=== PATIENT | female | born 1985 | race Caucasian/White ===

== ENCOUNTER 2017-07-11 18:01 | Emergency (ER) | payer OTHER ==
[~2017-07-11] VITALS: Ht 172.7 cm; Wt 111.4 kg
[2017-07-11 18:29] VITALS: TEMP 37; Ht 172.7 cm; Wt 111.4 kg
--- NOTE | 2017-07-11 19:31 | EMERGENCY ROOM VISIT NOTE ---
History First contact with patient: 19:27 Chief Complaint: ABDOMINAL PAIN Stated Complaint: STOMACH CRAMPING, FEVER, SWEATS Nursing Triage Summary: patient reports nausea and "twisting" abd pain states she is having chills and pain all over her body. Patient also reports she thought she may be but took a test and it was negative. Patient also vomiting denies any diarrhea or urinary symptoms. History of Present Illness The patient is a 32 year old female who presents to the Emergency Room with complaints of abdominal "uneasiness" and nausea x 1 week. Patient states that approx a week prior she started to suffer from intermittent abdominal cramping associated with nausea and vomiting. She does not have any constant abdominal pain and does not quantify the cramping as actually pain. She states that she was very ill due to a throat infection a few years ago and "just wanted to make sure this was not an infection." She had taken two tests at home which were negative. She denies any dysuria, hematuria, change in bowel habits. She has a history of appendectomy. She refuses saline lock placement. Review of Systems A 10 point review of systems was completed and negative aside from above Past Medical/Surgical History Surgical Problems: (1) History of appendectomy Family History Cancer Diabetes mellitus Heart disease Hypertension Kidney disease Kidney stones Lung disease Social History Smoking Status: Current Every Day Smoker Smokeless Tobacco Use: No Alcohol Use: occasionally Drug Use: none Occupation Status: employed Current/Historical Medications No Active Prescriptions or Reported Meds Allergies Coded Allergies: No Known Allergies (Unverified , 07/11/17) Physical Exam Vital Signs Date Time Temp Pulse Resp B/P (MAP) Pulse Ox O2 Delivery O2 Flow Rate FiO2 07/11/17 20:06 72 20 134/98 99 Room Air 07/11/17 18:29 37.0 93 20 148/94 99 Room Air Physical Exam General: ambulatory, not in acute distress Skin: no rashes noted, no suspicious lesions, no areas of inflammations/ lacerations/ erythema noted CVS: S1/ S2 noted, RRR, no rubs/ murmurs noted, no cyanosis RVS: Clear throughout bilaterally, not in acute respiratory distress, no wheezing/ rales/ crackles noted ENT: no erythema/ injection/ ulcerations noted in the pharynx, no lymphadenopathy Neck: inspection WNL, full ROM of neck ABD: BSx4, mild pain/ tenderness on palpation diffusely, no organomegaly, negative miguel's, psoas, Rovsing, CVA tenderness MSK: inspection of all limbs WNL, motor and sensation intact in all limbs, no swelling/ pain on palpation of joints NVS: alert and oriented x 3 Lymph: No lymphadenopathy palpable Medical Decision & Procedures Laboratory Results 07/11/17 20:00 Red Blood Count 4.79, Mean Corpuscular Volume 90.0, Mean Corpuscular Hemoglobin 32.6, Mean Corpuscular Hemoglobin Concent 36.2, Mean Platelet Volume 11.4, Neutrophils (%) (Auto) 68.8, Lymphocytes (%) (Auto) 22.1, Monocytes (%) (Auto) 6.5, Eosinophils (%) (Auto) 1.9, Basophils (%) (Auto) 0.4, Neutrophils # (Auto) 7.06, Lymphocytes # (Auto) 2.27, Monocytes # (Auto) 0.67, Eosinophils # (Auto) 0.19, Basophils # (Auto) 0.04 07/11/17 20:00 Test 07/11/17 20:00 White Blood Count 10.26 K/uL (4.8-10.8) Red Blood Count 4.79 M/uL (4.2-5.4) Hemoglobin 15.6 g/dL (12.0-16.0) Hematocrit 43.1 % (37-47) Mean Corpuscular Volume 90.0 fL (80-100) Mean Corpuscular Hemoglobin 32.6 pg (25-34) Mean Corpuscular Hemoglobin Concent 36.2 g/dl (32-36) Platelet Count 218 K/uL (130-400) Mean Platelet Volume 11.4 fL (7.4-10.4) Neutrophils (%) (Auto) 68.8 % Lymphocytes (%) (Auto) 22.1 % Monocytes (%) (Auto) 6.5 % Eosinophils (%) (Auto) 1.9 % Basophils (%) (Auto) 0.4 % Neutrophils # (Auto) 7.06 K/uL (1.4-6.5) Lymphocytes # (Auto) 2.27 K/uL (1.2-3.4) Monocytes # (Auto) 0.67 K/uL (0.11-0.59) Eosinophils # (Auto) 0.19 K/uL (0-0.5) Basophils # (Auto) 0.04 K/uL (0-0.2) RDW Standard Deviation 40.8 fL (36.4-46.3) RDW Coefficient of Variation 12.5 % (11.5-14.5) Immature Granulocyte % (Auto) 0.3 % Immature Granulocyte # (Auto) 0.03 K/uL (0.00-0.02) Urine Color YELLOW Urine Appearance CLOUDY (CLEAR) Urine pH 6.5 (4.5-7.5) Urine Specific [place] 1.023 (1.000-1.030) Urine Protein NEG (NEG) Urine Glucose (UA) NEG (NEG) Urine Ketones 1+ (NEG) Urine Occult Blood NEG (NEG) Urine Nitrite NEG (NEG) Urine Bilirubin NEG (NEG) Urine Urobilinogen NEG (NEG) Urine Leukocyte Esterase SMALL (NEG) Urine WBC (Auto) 10-30 /hpf (0-5) Urine RBC (Auto) 0-4 /hpf (0-4) Urine Hyaline Casts (Auto) 5-10 /lpf (0-5) Urine Epithelial Cells (Auto) >30 /lpf (0-5) Urine Bacteria (Auto) 2+ (NEG) Anion Gap 9.0 mmol/L (3-11) Est Creatinine Clear Calc Drug Dose 126.2 ml/min Estimated GFR () 107.4 Estimated GFR (Non- 92.7 BUN/Creatinine Ratio 11.2 (10-20) Calcium Level 9.4 mg/dl (8.5-10.1) Total Bilirubin 0.9 mg/dl (0.2-1) Aspartate Amino Transf (AST/SGOT) 18 U/L (15-37) Alanine Aminotransferase (ALT/SGPT) 19 U/L (12-78) Alkaline Phosphatase 82 U/L (45-117) Total Protein 8.1 gm/dl (6.4-8.2) Albumin 4.1 gm/dl (3.4-5.0) Globulin 4.0 gm/dl (2.5-4.0) Albumin/Globulin Ratio 1.0 (0.9-2) Lipase 96 U/L (73-393) Human Chorionic Gonadotropin, Qual NEG (NEG) Medications Administered Medications (Trade) Dose Ordered Sig/Delfino Route Start Time Stop Time Status Last Admin Dose Admin Ondansetron HCl (Zofran Odt) 4 mg NOW STAT PO 07/11/17 19:46 07/11/17 19:47 DC 07/11/17 20:05 4 MG ECG Indication: nausea Rate (beats per minute): 64 Rhythm: normal sinus Findings: no acute ischemic change, no ectopy Change: no significant change ED Course 1929: Patient was assessed and evaluated by resident 1944: Zofran 4 mg ODT x 1 2124: Patient was reassessed and improvement of symptoms, patient was d/c home with close follow up with PCP and referral to GI Medical Decision Differential diagnosis: Etiologies such as appendicitis, diverticulitis, PUD, biliary pathology, UTI, pancreatitis, obstruction, mesenteric ischemia, aortic pathology, infections, inflammatory bowel disease, renal colic, as well as others were entertained. This is a 32 yo f that is being evaluated for abdominal pain and nausea. CBC did not reveal any anemia or leukocytosis. CMP was unremarkable and no acute process noted. UA did not reveal any infection as abnormalities were most likely secondary to an improper sample as patient has no urinary symptoms. HCG quat was negative. Patient did receive Zofran with improvement of symptoms. Based on results of labs the patient is not suffering from cholecystectomy or pancreatitis. The patient has been having nausea and vomiting so most likely with such normal labs the patient is suffering from a gastroenteritis. The patient was discharged home with close follow up with PCP. Impression Primary Impression: Acute gastroenteritis Departure Information Dispostion Home / Self-Care Condition GOOD Prescriptions No Active Prescriptions or Reported Meds Referrals No Doctor, Assigned (PCP) Patient Instructions [facility]
[2017-07-11] MEDS ORDERED: ONDANSETRON 4MG OD TAB PO STA (19:46)
--- NOTE | 2017-07-11 19:47 | EMERGENCY ROOM VISIT NOTE ---
ED Visit Note First contact with patient: 19:27 Resident Physician Supervision Note: I interviewed and examined the patient. Discussed with Dr. Wahl and agree with findings and plan as documented in the note. Documented By: Ben Coates Problem List Surgical Problems: (1) History of appendectomy Status: Chronic Allergies Coded Allergies: No Known Allergies (Unverified , 05/02/16) Vital Signs Date Time Temp Pulse Resp B/P (MAP) Pulse Ox O2 Delivery O2 Flow Rate FiO2 07/11/17 18:29 37.0 93 20 148/94 99 Room Air Laboratory Results Test 07/11/17 19:27 Departure Information Referrals No Doctor, Assigned (PCP) Patient Instructions [facility]
[2017-07-11 20:10] LABS: BASO % 0.4 %; BASO ABS # 0.04 K/uL (0-0.2); COMPLETE YES; EOS % 1.9 %; HEMATOCRIT 43.1 % (37-47); IG% 0.3 %; LYMPH % 22.1 %; LYMPH ABS # 2.27 K/uL (1.2-3.4); MEAN CORPUSCULAR HEMOGLOBIN 32.6 pg (25-34); MEAN CORPUSCULAR HGB CONC 36.2 g/dl (32-36); MEAN PLATELET VOLUME 11.4 fL (7.4-10.4); MONO % 6.5 %; NEUT % 68.8 %; PLATELET COUNT 218 K/uL (130-400); RED BLOOD COUNT 4.79 M/uL (4.2-5.4); WHITE BLOOD COUNT 10.26 K/uL (4.8-10.8)
[2017-07-11 20:28] LABS: BUN/CREATININE RATIO 11.2 (10-20); CALCIUM 9.4 mg/dl (8.5-10.1); CREATININE 0.83 mg/dl (0.60-1.20); POTASSIUM 3.5 mmol/L (3.5-5.1)
[2017-07-11 20:54] LABS: PREG INTERNAL NEGATIVE QC NEG CLEAR BACKGROUND; PREG INTERNAL POSITIVE QC POS CONTROL LINE
[2017-07-11 21:11] LABS: URINE APPEARANCE CLOUDY (CLEAR); URINE BILIRUBIN NEG (NEG); URINE COLOR YELLOW; URINE EPITHELIAL CELL AUTO >30 /lpf (0-5); URINE NITRITE NEG (NEG); URINE PH 6.5 (4.5-7.5); URINE SPECIFIC GRAVITY 1.023 (1.000-1.030); UROBILINOGEN NEG (NEG); ZZUR CULT IF INDIC CLEAN CATCH YES
[2017-07-11 21:19] LABS: MANUAL MICROSCOPIC REQUIRED? NO; REVIEW REQ? NO
[2017-07-11 21:40] VITALS: BP 116/90; PULSE 80; O2SAT 98
[2017-07-11 21:42] LABS: INFLUENZA A PCR Neg for Influ A (NEG); INFLUENZA B PCR Neg for Influ B (NEG)
== END 2017-07-11 21:42 | disposition home or self-care (01) ==
LOC: C.EDB 18:02
DX: K52.9 Noninfective gastroenteritis and colitis, unspecified (principal); Z80.9 Family history of malignant neoplasm, unspecified; Z83.3 Family history of diabetes mellitus; Z82.49 Family history of ischemic heart disease and other diseases of the circulatory system; Z84.1 Family history of disorders of kidney and ureter; F17.210 Nicotine dependence, cigarettes, uncomplicated

== ENCOUNTER 2017-08-26 07:03 | Emergency (ER) | payer SELFPAY ==
[~2017-08-26] VITALS: Ht 172.7 cm; Wt 112.8 kg
[2017-08-26 07:08] VITALS: BP 148/88; TEMP 36.5; Ht 172.7 cm; Wt 112.8 kg
[2017-08-26 08:04] LABS: BASO % 0.2 %; BASO ABS # 0.02 K/uL (0-0.2); COMPLETE YES; EOS % 2.1 %; HEMATOCRIT 41.8 % (37-47); IG% 0.2 %; LYMPH % 16.8 %; LYMPH ABS # 1.37 K/uL (1.2-3.4); MEAN CELL VOLUME 92.1 fL (80-100); MEAN CORPUSCULAR HEMOGLOBIN 32.6 pg (25-34); MEAN CORPUSCULAR HGB CONC 35.4 g/dl (32-36); MEAN PLATELET VOLUME 11.7 fL (7.4-10.4); MONO % 7.6 %; NEUT % 73.1 %; PLATELET COUNT 200 K/uL (130-400); RED BLOOD COUNT 4.54 M/uL (4.2-5.4); WHITE BLOOD COUNT 8.14 K/uL (4.8-10.8)
[2017-08-26 08:11] VITALS: PULSE 84; O2SAT 98
--- NOTE | 2017-08-26 16:10 | EMERGENCY ROOM VISIT NOTE ---
ED Visit Note First contact with patient: 07:18 CHIEF COMPLAINT: Sore throat HISTORY OF PRESENT ILLNESS: This 32-year-old white female patient reports increasing pain in the throat over the last several days, gradual in onset. It is worse with swallowing. No fever or chills. Occasional sweats. No rashes. Denies any posterior neck pain or stiffness. No difficulty breathing or shortness of breath. No ear pain, cough, or abdominal pain. Symptoms came on gradually. There has been no chest pain, no nausea or vomiting. No known ill contacts. Pain is 5/10. She went to work today and was seen in the [facility]. They requested she come here for strep testing. REVIEW OF SYSTEMS: HEENT: No dizziness, visual problems, hearing loss, or tinnitus. no oral lesions are present. LYMPH: No adenopathy. PULMONARY: No cough, shortness of breath, sputum production or hemoptysis. CARDIOVASCULAR: No chest pain, palpitations, shortness of breath or peripheral edema. GASTROINTESTINAL: No diarrhea, constipation, nausea, vomiting, or abdominal pain. GENITOURINARY: No dysuria, frequency, urgency or nocturia. NEUROLOGIC: No weakness, muscle tenderness, epilepsy or history of neurological problems. MUSCULOSKELETAL: No history of joint tenderness/swelling. No history of arthritis or arthralgias. SKIN: No rashes or lesions. PSYCHIATRIC: No history of depression or mental illness. ENDOCRINE: No history of diabetes, thyroid disorders, or abnormal hair growth. Supplemental sheet was reviewed and signed. Previous surgeries: Appendectomy Medical history: Significant for previous pneumonia. Current medications: Reviewed and filed in patient's chart Allergies: NKDA Family History: Significant for diabetes, heart disease, hypertension, cancer, lung disease, gallbladder disease, kidney stones, and seizures. Parents are living. SOCIAL HISTORY: Employed at the [employer]. Positive tobacco use. Occasional EtOH use. Lives with her boyfriend. PHYSICAL EXAM: Vital Signs: Temp 36.5. Reviewed and filed in patient's chart MENTAL STATUS: Alert and oriented. Skin:Warm and dry with good turgor. No rashes or lesions. No ecchymosis or erythema. The patient is not diaphoretic. No abrasions. HEENT: Normocephalic atraumatic. Eyes PERRLA, EOMI. No conjunctiva or scleral injection. Ears TMs intact bilaterally with good light reflexes. No erythema or bulging. No hemotympanum. Canals are patent. Nares patent bilaterally without turbinate enlargement. No significant drainage. No epistaxis. Oropharynx with erythema and exudate. Uvula midline, oral mucosa moist. No lesions present. Lymphatics are palpated with anterior chain enlargement and tenderness. No posterior chain enlargement or tenderness. Heart: Heart RRR. No MGR. Peripheral pulses are 2+. Lungs: Lungs are clear to auscultation. No crackles, rhonchi, or wheezing. Good air movement. The patient is able to take a deep breath. Data: Rapid strep obtained today was negative. Back up cultures were sent. Monospot obtained today was negative. CBC obtained today was unremarkable. DIAGNOSIS: Acute viral pharyngitis. DISCHARGE INSTRUCTIONS & TREATMENT: Patient was educated regarding today's findings. Conservative care measures were discussed. She will be called if the back up cultures return positive. Maintain hydration. She was reassured that her Monospot is negative. Tylenol and ibuprofen every 6 hours as needed for discomfort. Read the pharyngitis (sore throat) instruction sheet. Cepacol lozenges may also improve comfort. Follow-up with her PCP as needed. She may return to work tomorrow given her lab work. Problem List Surgical Problems: (1) History of appendectomy Status: Chronic Current/Historical Medications No Active Prescriptions or Reported Meds Allergies Coded Allergies: No Known Allergies (Unverified , 08/26/17) Vital Signs Date Time Temp Pulse Resp B/P (MAP) Pulse Ox O2 Delivery O2 Flow Rate FiO2 08/26/17 08:11 84 16 98 08/26/17 07:12 97 Room Air 08/26/17 07:08 36.5 82 18 148/88 97 Room Air Laboratory Results 08/26/17 07:45 Red Blood Count 4.54, Mean Corpuscular Volume 92.1, Mean Corpuscular Hemoglobin 32.6, Mean Corpuscular Hemoglobin Concent 35.4, Mean Platelet Volume 11.7, Neutrophils (%) (Auto) 73.1, Lymphocytes (%) (Auto) 16.8, Monocytes (%) (Auto) 7.6, Eosinophils (%) (Auto) 2.1, Basophils (%) (Auto) 0.2, Neutrophils # (Auto) 5.94, Lymphocytes # (Auto) 1.37, Monocytes # (Auto) 0.62, Eosinophils # (Auto) 0.17, Basophils # (Auto) 0.02 Test 08/26/17 07:45 White Blood Count 8.14 K/uL (4.8-10.8) Red Blood Count 4.54 M/uL (4.2-5.4) Hemoglobin 14.8 g/dL (12.0-16.0) Hematocrit 41.8 % (37-47) Mean Corpuscular Volume 92.1 fL (80-100) Mean Corpuscular Hemoglobin 32.6 pg (25-34) Mean Corpuscular Hemoglobin Concent 35.4 g/dl (32-36) Platelet Count 200 K/uL (130-400) Mean Platelet Volume 11.7 fL (7.4-10.4) Neutrophils (%) (Auto) 73.1 % Lymphocytes (%) (Auto) 16.8 % Monocytes (%) (Auto) 7.6 % Eosinophils (%) (Auto) 2.1 % Basophils (%) (Auto) 0.2 % Neutrophils # (Auto) 5.94 K/uL (1.4-6.5) Lymphocytes # (Auto) 1.37 K/uL (1.2-3.4) Monocytes # (Auto) 0.62 K/uL (0.11-0.59) Eosinophils # (Auto) 0.17 K/uL (0-0.5) Basophils # (Auto) 0.02 K/uL (0-0.2) RDW Standard Deviation 42.0 fL (36.4-46.3) RDW Coefficient of Variation 12.4 % (11.5-14.5) Immature Granulocyte % (Auto) 0.2 % Immature Granulocyte # (Auto) 0.02 K/uL (0.00-0.02) Monoscreen NEG (NEG) Departure Information Prescriptions No Active Prescriptions or Reported Meds Referrals No Doctor, Assigned (PCP) Patient Instructions [facility]
== END 2017-08-26 08:11 | disposition home or self-care (01) ==
LOC: C.EDB 07:04
DX: J02.8 Acute pharyngitis due to other specified organisms (principal); F17.200 Nicotine dependence, unspecified, uncomplicated; Z90.89 Acquired absence of other organs; Z87.01 Personal history of pneumonia (recurrent); Z83.3 Family history of diabetes mellitus; Z82.49 Family history of ischemic heart disease and other diseases of the circulatory system; Z80.9 Family history of malignant neoplasm, unspecified; Z83.79 Family history of other diseases of the digestive system; Z84.1 Family history of disorders of kidney and ureter; Z82.3 Family history of stroke